=== PATIENT | male | born 1955 | race Hispanic/Latino ===

== ENCOUNTER 2017-02-23 14:17 | Emergency (ER) | payer OTHER ==
--- NOTE | 2017-02-23 15:11 | CT REPORT ---
HISTORY: Trauma COMPARISON: None. TECHNIQUE: This examination was performed using automated exposure control, adjustment of mA or kV according to patient size, and/or use of iterative reconstruction technique. Axial thin section images obtained f rom skull base through head of the clavicles. Sagittal and coronal reformat images obtained. FINDINGS: No acute fracture or subluxation is demonstrated. Prevertebral soft tissues are normal. Degenerative disc disease is mild at C3-4 and C4-5 and is moderate at C5-6. Multilevel mild facet arthropathy is p resent. Craniocervical alignment is normal. IMPRESSION: No acute fracture or subluxation. Degenerative disease as described. This report was discussed with Dr. Baldwin on 02/23/2017 at 3:07 PM. Final Electronic Signature: This report was electronically signed by Jeffry Bailey MD on 02/23/2017 3:08 PM. mary /
--- NOTE | 2017-02-23 15:25 | CT REPORT ---
HISTORY: Headache. COMPARISON: None TECHNIQUE: Axial CT images were obtained through the head and reformatted in coronal planes without the intraven ous administration of contrast. Dose reduction technique was utilized. FINDINGS: There is minimal diffuse atrophy. There is no acute infarct, hemorrhage, mass, hydrocephalus or midli ne shift. There is no acute calvarial fracture. There is minimal mucosal thickening in the bilateral maxillary sinuses. The bilateral mastoid air cells are clear. IMPRESSION: Unremarkable CT head examination Final Electronic Signature: This report was electronically signed by Jona Augustin MD on 017 3:23 PM. maverick /
[2017-02-23] MEDS ORDERED: ACETAMINOPHEN 325 MG TABLET PO ONE (15:33)
[2017-02-23] MEDS ORDERED: ONDANSETRON ODT 4 MG TAB.RAPDIS ONE (15:33)
--- NOTE | 2017-02-23 15:35 | ER PHYSICIAN DOCUMENTATION ---
Physician Documentation [facility] Name:James Segura Age:61 yrs Sex:Male :1955 Arrival Date:02/23/2017 Time:14:17 Bed1 Private MD: Fredi Magdaleno Disposition: 02/23/17 15:23 Discharged to Home/Self Care. Impression: Head Contusion, Unspecified Part of Head, Concussion, Neck Sprain, Cervical Radiculopathy. - Condition is Good. - Discharge Instructions: CERVICAL RADICULOPATHY - RADICULOPATHY, Cervical, Brain Concussion - CONCUSSION, No Wake Up. - Prescriptions for Percocet 5- 325 mg Oral Tablet - take 1 tablet by ORAL route every 6 hours As needed; 20 tablet. - Medical Reconciliation form form. - Follow up: Private Physician; When: As needed; Reason: Continuance of care. - Problem is new. - Symptoms have improved. - Notes: Also use advil 600mg every 8 hours. HPI: 02/23 14:57 This 61 yrs old Male presents to ER via Private Vehicle with complaints of jm Head Injury-Adult. 15:29 The patient or guardian reports injury, swelling, tenderness. The complaints affect the jm left frontal area and left side of the back of head. Context of injury: resulted from a large metal pot landed on his head while he was crouched over. Pt did well yesterday, but today he has vision problems, bad [place], neck pain, and shooting pain down his L arm. . Onset: The symptom(s)/episode began/occurred yesterday, and became worse today. Associated signs and symptoms: Loss of consciousness: This patient did not experience any loss of consciousness. Pertinent positives: double vision, headache, neck pain. Severity of symptoms: in the emergency department the symptoms are actually worse. Intracranial bleed risk factors: age over 60. The patient has not experienced similar symptoms in the past. The patient has not recently seen a physician. Historical: - Allergies: No known drug Allergies; - Home Meds: 1. None - PMHx: None; - PSHx: None; - Ebola Screening: : Patient denies exposure to infectious person. Patient denies travel to an Ebola-affected area in the 21 days before illness onset. . ROS: 15:32 Constitutional: Negative for fatigue, fever. jm 15:32 Eyes: Positive for blurry vision. 15:32 ENT: Negative for injury or acute deformity. 15:32 Neck: Positive for injury or acute deformity. 15:32 Neck: Negative for stiffness. 15:32 Cardiovascular: Negative for chest pain, palpitations. 15:32 Respiratory: Negative for cough, shortness of breath. 15:32 Back: Negative for injury or acute deformity. 15:32 MS/extremity: Positive for pain, of the left arm. 15:32 Neuro: Positive for tingling. Exam: 15:33 Constitutional: The patient appears alert, awake, comfortable. jm 15:33 Head/face: Exam is negative for abrasion(s), contusion, Basilar skull fracture findings: the patient does not have obvious signs of a basilar skull fracture. 15:33 Eyes: Pupils: equal, round, and reactive to light and accomodation, Extraocular movements: intact throughout. 15:33 ENT: Mouth: is normal, Voice: is normal. 15:33 Neck: C-spine: C-collar placed in ED, C-collar is removed, after CT scanning reveals no obvious unstable abnormality, vertebral tenderness, that is mild, appreciated at C3 and C4, Thyroid: appears normal. 15:33 Cardiovascular: Rate: normal, Rhythm: regular. 15:33 Respiratory: Respirations: normal, Breath sounds: are normal. 15:33 Abdomen/GI: Bowel sounds: normal, Palpation: abdomen is soft and non-tender. 15:33 Back: CVA tenderness, is absent, vertebral tenderness, is not appreciated. 15:33 Musculoskeletal/extremity: Extremities: grossly normal except: noted in the left arm: pain, tenderness, Weight bearing: able to fully bear weight. 15:33 Neuro: Mentation: is normal, Memory: is normal, Gait: is steady. 15:33 Psych: Behavior/mood is pleasant, cooperative, Affect is calm. Vital Signs: 14:25 BP 138 / 100 (auto/); Pulse 88; Resp 18; Temp 97.7; Pulse Ox 92% ; Pain 8/10; st 14:27 Pulse Ox 90% ; st [place]ry[place] Coma Score: 14:35 Eye Response: spontaneous(4). Verbal Response: oriented(5). Motor Response: obeys st commands(6). Total: 15. 15:29 Eye Response: spontaneous(4). Verbal Response: oriented(5). Motor Response: obeys jm commands(6). Total: 15. 15:34 Eye Response: spontaneous(4). Verbal Response: oriented(5). Motor Response: obeys st commands(6). Total: 15. Trauma Score (Adult): 14:41 Eye Response: spontaneous(1); Verbal Response: oriented(1); Motor Response: obeys st commands(2); Systolic BP: > 89 mm Hg(4); Respiratory Rate: 10 to 29 per min(4); Arya Score: 15; Trauma Score: 12 MDM: 14:46 Patient medically screened. 15:35 Differential diagnosis: Contusion of Hematoma on Laceration of Intracranial bleed- Concussion. Neurological re-evaluation: normal neurological exam including cranial nerves, orientation, mentation, motor and sensory exam, cerebellar testing, GCS normal, and normal gait. Data reviewed: vital signs, nurses notes, radiologic studies, and as a result, I will discharge patient. Counseling: I had a detailed discussion with the patient and/or guardian regarding: the historical points, exam findings, and any diagnostic results supporting the discharge/admit diagnosis, radiology results, the need for outpatient follow up, with the patient's primary care provider. ED course: Alley Worker used upon my arrival. Pt understood that CT's were normal, but given the sx, pt most likely has concussion and cervical strain w radicular sx. Pt given narcotic pain meds. Pt given instructions on narcotic pain meds. DC home. . 02/23 15:11 Order name: CAT SCAN; CERVICAL [id number] EDCA 02/23 15:28 Order name: CAT SCAN; HEAD W/O CON [id number] EDCA 02/23 14:47 Order name: C-collar - apply; Complete Time: 14:47 Dispensed Medications: 15:24 Drug: oxyCODONE 10 mg; Route: PO; st 15:33 Follow up: Response: Medication administered at discharge. st 15:24 Drug: Zofran 4 mg; Route: PO; st 15:33 Follow up: Response: Medication administered at discharge. st 15:24 Drug: Tylenol 650 mg; Route: PO; st 15:33 Follow up: Response: Medication administered at discharge. st Signatures: Asuncion Sr RN RN Fredi Lan MD MD jm
--- NOTE | 2017-02-23 15:35 | ER NURSING DOCUMENTATION ---
Nurse's Notes [facility] Name:James Segura Age:61 yrs Sex:Male :1955 Arrival Date:02/23/2017 Time:14:17 Bed1 Private MD: Diagnosis:Head Contusion, Unspecified Part of Head;Concussion;Neck Sprain;Cervical Radiculopathy Presentation: 02/23 14:31 Acuity: GARCÍA 3 st 14:35 Presenting complaint: Patient states: pt states with help of translator interpreter that he was at st work yesterday and had a large cooking pot fall on his head. today pt states he has left sided head pain. is tender in his neck and left arm. pt is tender to all palpation in head, neck back and left arm though he states that his left head face, neck and arm hurt the worst. pt has no troubles moving his left arm. Transition of care: Home. Mechanism of Injury: The problem was sustained at work, resulted from. 14:35 Method Of Arrival: Private Vehicle Triage Assessment: 14:38 General: Appears uncomfortable, Behavior is cooperative. Pain: Complains of pain in st left ear, left cheek, left eye, left buddhism, left jaw, scalp, left arm and neck Pain currently is 8 out of 10 on a pain scale. Pain began 3 hours ago pt hurt after the pot fell yesterday however the intense pain he is experiencing now has only been going on for 3 hours. Neuro: Level of Consciousness is awake, alert, Oriented to person, place, time, event, Moves all extremities. Reports blurred vision in iris of left eye. Cardiovascular: No deficits noted. Respiratory: No deficits noted. GI: No deficits noted. Musculoskeletal: Circulation, motion, and sensation intact Reports pain in face, scalp, left arm and neck. Historical: - Allergies: No known drug Allergies; - Home Meds: 1. None - PMHx: None; - PSHx: None; - Ebola Screening: : Patient denies exposure to infectious person. Patient denies travel to an Ebola-affected area in the 21 days before illness onset. . Screenin:41 Nutritional screening: No deficits noted. st Vital Signs: 14:25 BP 138 / 100 (auto/); Pulse 88; Resp 18; Temp 97.7; Pulse Ox 92% ; Pain 8/10; st 14:27 Pulse Ox 90% ; st [place] Coma Score: 14:35 Eye Response: spontaneous(4). Verbal Response: oriented(5). Motor Response: obeys st commands(6). Total: 15. 15:29 Eye Response: spontaneous(4). Verbal Response: oriented(5). Motor Response: obeys jm commands(6). Total: 15. 15:34 Eye Response: spontaneous(4). Verbal Response: oriented(5). Motor Response: obeys st commands(6). Total: 15. Trauma Score (Adult): 14:41 Eye Response: spontaneous(1); Verbal Response: oriented(1); Motor Response: obeys st commands(2); Systolic BP: > 89 mm Hg(4); Respiratory Rate: 10 to 29 per min(4); [place] Score: 15; Trauma Score: 12 ED Course: 14:20 Patient arrived in ED. ama 14:30 Asuncion Sr, RN is Primary Nurse. st 14:[address] 14:35 Kalpana cervical collar applied. st 14:[address] colleen 14:41 Valuables Remains with patient Bed in low position. st 14:46 Fredi Baldwin MD is Attending Physician. jm 14:52 Patient moved back from [address]. colleen 15:00 C-collar removed by MD: Denny time removed: 15:00. st Administered Medications: 15:24 Drug: oxyCODONE 10 mg; Route: PO; st 15:33 Follow up: Response: Medication administered at discharge. st 15:24 Drug: Zofran 4 mg; Route: PO; st 15:33 Follow up: Response: Medication administered at discharge. st 15:24 Drug: Tylenol 650 mg; Route: PO; st 15:33 Follow up: Response: Medication administered at discharge. st Intake: 15:34 PO: 0ml; IV: 0ml; Total: 0ml. st Output: 15:34 Urine: 0ml; Total: 0ml. st Outcome: 15:23 Discharge ordered by . jm 15:33 Discharged to home ambulatory. st 15:33 Condition: stable 15:33 Discharge instructions given to patient, Instructed on discharge instructions, follow up and referral plans. medication usage, Prescriptions given X 1. 15:34 Patient [address] the ED. st Signatures: Twombly, Summer, Fredi Cespedes RN, MD MD jm Abbott, Kareem Mckeon, Reg Reg ama
== END 2017-02-23 15:35 | disposition home or self-care (01) ==
LOC: ER 14:17
DX: S00.03XA Contusion of scalp, initial encounter (principal); S06.0X0A Concussion without loss of consciousness, initial encounter; S13.4XXA Sprain of ligaments of cervical spine, initial encounter; M50.10 Cervical disc disorder with radiculopathy, unspecified cervical region; W20.8XXA Other cause of strike by thrown, projected or falling object, initial encounter; Y92.511 Restaurant or cafe as the place of occurrence of the external cause; Y93.G1 Activity, food preparation and clean up; Y99.0 Civilian activity done for income or pay
CPT/HCPCS: 70450; 72125; 99284